=== PATIENT | female | born 2000 | race Hispanic/Latino ===

== ENCOUNTER 2019-02-10 17:18 | Emergency (ER) | payer SELFPAY ==
[~2019-02-10] VITALS: Ht 157.5 cm; Wt 43.8 kg
--- OUTSIDE RECORDS SUMMARY | 2019-02-10 17:20 | XMS REPORT ---
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 Allergies, Adverse Reactions, Alerts Allergy Name Allergy Type Status Severity Reaction(s) Onset Date Inactive Date Treating Clinician Comments No Known Allergies DA Active U 2018-03-27 00:00:00 Medications This patient has no known medications.
[2019-02-10 18:25] VITALS: BP 116/76
== END 2019-02-10 18:13 | disposition home or self-care (01) ==
LOC: FSED 17:18
DX: R21 Rash and other nonspecific skin eruption (principal)
CPT/HCPCS: 99282

== ENCOUNTER 2020-10-21 18:58 | Emergency (ER) | payer SELFPAY ==
[~2020-10-21] VITALS: Ht 157.5 cm; Wt 43.5 kg
[2020-10-21] MEDS ORDERED: KEFLEX125 MG/5 M PO (19:31)
[2020-10-21] MEDS ORDERED: NAPROSYN500 MG PO (19:31)
== END 2020-10-21 20:15 | disposition home or self-care (01) ==
LOC: FSED 19:20
DX: T22.222A Burn of second degree of left elbow, initial encounter (principal); X10.1XXA Contact with hot food, initial encounter; Y92.511 Restaurant or cafe as the place of occurrence of the external cause
CPT/HCPCS: 99282

== ENCOUNTER 2020-12-11 01:36 | Emergency (ER) | payer SELFPAY ==
[~2020-12-11] VITALS: Ht 157.5 cm; Wt 43.5 kg
[~2020-12-11 01:36] MED LIST: KEFLEX125 MG/5 M PO; NAPROSYN500 MG PO
== END 2020-12-11 02:58 | disposition home or self-care (01) ==
LOC: ER 02:42
DX: B82.0 Intestinal helminthiasis, unspecified (principal)
CPT/HCPCS: 99282